=== PATIENT | female | born 1945 | race Hispanic/Latino ===

== ENCOUNTER → 2018-01-15 | Outpatient (CLI) | payer MEDICARE ==
--- NOTE | 2018-01-16 12:02 | Diagnostic Imaging Report ---
EXAM: DXA BONE DENSITY INDICATIONS: SCREENING FOR OSTEOPOROSIS COMPARISON: None. FINDINGS: Proximal left femur total bone mineral density (BMD) (g/cm2):0.751 Femur T-score (standard deviation relative to young adult mean BMD): -1.6 Femur Z-score (standard deviation relative to age-matched control group):0.0 Proximal left femur neck bone mineral density (BMD) (g/cm2):0.628 Femur T-score (standard deviation relative to young adult mean BMD): -2.1 Femur Z-score (standard deviation relative to age-matched control group):-0.3 Lumbar bone mineral density (BMD) (g/cm2):0.906 Lumbar T-score (standard deviation relative to young adult mean BMD): -1.3 Lumbar Z-score (standard deviation relative to age-matched control group):0.9 Change since prior exam (%): Femur:Not applicable. Spine:Not applicable. Change since oldest prior exam (%): Femur:Not applicable. Spine:Not applicable. CONCLUSION: 1. Bone mineral density in the left femur is classified as osteopenia. Fracture risk is increased. 2. Bone mineral density in the spine is classified as osteopenia. Fracture risk is increased. World Health Organization Classification: *The Z-score is provided for informational purposes. The T-score is preferable for clinical decisions. When comparing exams, a change of >4% is considered statistically significant. SUGGESTED RECOMMENDATIONS: Normal \T\ Osteopenia:Consideration should be given to use of calcium supplementation, daily multiple vitamins and adequate exercise, as preventive measures against osteoporosis, if clinically indicated. Osteoporosis \T\ Severe Osteoporosis:In addition to the above, consideration should be given to medical therapy against osteoporosis, if clinically indicated. Geremias Woods M.D. Dictated by: Geremias Woods M.D. on 01/16/2018 at 12:02 Electronically approved by: Geremias Woods M.D. on 01/16/2018 at 12:02
== END ==
LOC: MAMMO 10:01
PROVIDERS: ATTEND Family Medicine
DX: Z13.820 Encounter for screening for osteoporosis (principal)
CPT/HCPCS: 77080